=== PATIENT | female | born 1960 | race African-American/Black ===

== ENCOUNTER 2022-05-08 05:38 | Emergency (ER) | payer OTHER ==
[~2022-05-08] VITALS: Ht 165.1 cm; Wt 74.8 kg
[2022-05-08 06:00] VITALS: BP_SYST 117
--- NOTE | 2022-05-08 06:00 | NUR ---
Pt placed to ER waiting room in stable condition. Pt c/o nose bleed to left nare that onset 4 hours TEST [employer]. No active bleeding noted at this time.
--- NOTE | 2022-05-08 06:30 | NUR ---
Dr. Cohn assessing pt in triage.
[2022-05-08] MEDS ORDERED: ZIT250 PO (06:44)
[2022-05-08] MEDS ORDERED: FLUT16SP16 NS (06:44)
[2022-05-08 07:00] VITALS: BP_SYST 117
--- NOTE | 2022-05-08 07:00 | NUR ---
Patient given written and verbal discharge instructions and verbalizes understanding. ER MD discussed with patient the results and treatment provided. Patient in stable condition. ID arm band removed. Rx of Zithromax and Flonase given. Patient educated on pain management and to follow up with PMD. Pain Scale 0/10. Opportunity for questions provided and answered. Medication side effect fact sheet provided.
== END 2022-05-08 07:00 | disposition home or self-care (01) ==
LOC: SED 05:38
DX: J31.0 Chronic rhinitis (principal); R09.81 Nasal congestion; Z79.899 Other long term (current) drug therapy
CPT/HCPCS: 99283